=== PATIENT | male | born 1950 | race African-American/Black ===

== ENCOUNTER 2016-12-29 12:26 | Day surgery (SDC) | payer MEDICARE, OTHER ==
[~2016-12-29] VITALS: Ht 162.6 cm; Wt 114.6 kg
[2016-12-29] MEDS ORDERED: INSULIN HUMAN REGULAR 1,000 UNITS/10 ML VIAL SQ PRN (13:00)
[2016-12-29] MEDS ORDERED: LACTATED RINGER'S 1000 ML IV PRN (13:00)
[2016-12-29] MEDS ORDERED: METOPROLOL TARTRATE 25 MG TAB PO PRN (13:00)
[2016-12-29] MEDS ORDERED: SODIUM CHLORID 0.9% 500 ML IV PRN (13:00)
[2016-12-29] MEDS ORDERED: CHLORHEXIDINE GLUCONATE 2 % 1 PACK (2 CLOTHS) TOPICAL PRN (13:00)
[2016-12-29] MEDS ORDERED: GUAI1SOL3 PO (13:27)
[2016-12-29] MEDS ORDERED: GABA300C5 PO (13:27)
[2016-12-29] MEDS ORDERED: VERA120T3 PO (13:27)
[2016-12-29] MEDS ORDERED: METO100T PO (13:27)
[2016-12-29] MEDS ORDERED: ASPI1TAB69 PO (13:27)
[2016-12-29] MEDS ORDERED: ALBU0.63 NEB (13:27)
[2016-12-29] MEDS ORDERED: PANT40TA3 PO (13:27)
[2016-12-29 13:30] VITALS: BP 146/72; PULSE 70; RESP 18; TEMP 98.1; O2SAT 100
[2016-12-29 13:51] LABS: AUTOMATED NEUTROPHIL # 6.5 TH/MM3 (1.8-7.7); BASOPHIL # 0.1 TH/MM3 (0-0.2); BASOPHIL % 0.7 % (0.0-2.0); EOSINOPHIL # 0.1 TH/MM3 (0-0.4); EOSINOPHIL % 1.3 % (0.0-4.0); HEMATOCRIT 43.7 % (39.0-51.0); HEMO FLAGS DIFF FINAL; LYMPH % 24.4 % (9.0-44.0); LYMPHOCYTE # 2.4 TH/MM3 (1.0-4.8); MEAN CORPUSCULAR HEMOGLOBIN 26.8 PG (27.0-34.0); MEAN CORPUSCULAR HGB CONC 31.9 % (32.0-36.0); MONO % 7.6 % (0.0-8.0); PLATELET COUNT 220 TH/MM3 (150-450); RED CELL DISTRIBUTION WIDTH 14.7 % (11.6-17.2); WHITE BLOOD COUNT 9.8 TH/MM3 (4.0-11.0)
[2016-12-29] MEDS ORDERED: LORazepam 1 MG TAB SL SCH (14:00)
[2016-12-29] MEDS ORDERED: SODIUM CHLORID 0.9% 500 ML INJ 500 ML IV SCH (14:00)
[2016-12-29 14:01] LABS: APTT (PATIENT) 27.3 SEC (24.3-30.1); PROTHROMBIN TIME - PATIENT 10.7 SEC (9.8-11.6)
[2016-12-29 14:13] LABS: POTASSIUM 3.9 MEQ/L (3.5-5.1)
[2016-12-29] MEDS ORDERED: MIDAZOLAM HCL 2 MG/2 ML VIAL ONE (15:44)
[2016-12-29] MEDS ORDERED: ISOPROTERENOL HCL 1 MG/5 ML AMP ONE (15:44)
[2016-12-29] MEDS ORDERED: HEPARIN-NS/PF INJ 500 ML ONE (15:47)
[2016-12-29] MEDS ORDERED: PROPOFOL 200 MG/20 ML AMP IV ONE (16:15)
[2016-12-29] MEDS ORDERED: ONDANSETRON HCL 4 MG/2 ML VIAL IV PRN (17:45)
[2016-12-29] MEDS ORDERED: METOCLOPRAMIDE HCL 10 MG/2 ML VIAL IV PRN (17:45)
[2016-12-29] MEDS ORDERED: ATROPINE SULFATE 1 MG/ML VIAL IV PRN (17:45)
[2016-12-29] MEDS ORDERED: RESP: ALBUTEROL 0.63 MG/3 ML NEB (PRN) NEB (17:45)
[2016-12-29] MEDS ORDERED: LORazepam 2 MG/ML VIAL IV PRN (17:45)
[2016-12-29] MEDS ORDERED: LIDOCAINE HCL 1% 50 ML VIAL INFIL PRN (17:45)
[2016-12-29] MEDS ORDERED: SODIUM CHLOR 0.9% 250 ML INJ 250 ML IV PRN (17:45)
[2016-12-29] MEDS ORDERED: oxyCODONE/ACETAMINOPHEN 5 MG/325 MG TAB PO PRN ×2 (17:45)
[2016-12-29] MEDS ORDERED: BACITRACIN OINT 0.9 GM PKT TOP ONE (18:00)
[2016-12-29] MEDS ORDERED: DO NOT ADM ANY ANTICOAGULANT DRUGS PRN (20:45)
[2016-12-29 21:00] VITALS: PULSE 72
--- NOTE | 2016-12-29 21:14 | MA ---
cc: JULIO SHORE M.D. Corrected Copy: 12/30/16 DATE: 12/29/2016 PROCEDURE Electrophysiology study, CS cannulation, 3D mapping, radiofrequency ablation of right atrial tachyarrhythmia, repeat electrophysiology study on Isuprel infusion. INDICATION Mr. Goddard is a 66-year-old -[place] gentleman with a history of tachyarrhythmia, on multiple medication, symptomatic, referred for electrophysiology study and ablation. The risks, the nature and the benefit of the procedure are clearly stated to him. The risks include pneumothorax, cardiac perforation, stroke, need for open heart surgery and even . The patient understood and agreed to proceed. PROCEDURE After written informed consent was obtained, the patient was brought to the EP Lab where he was prepped and draped in the usual sterile fashion. Conscious sedation was initiated and maintained throughout the procedure by anesthesiologist. Once sedation verified, the right and left inguinal area was anesthetized with 2% Xylocaine. Using modified Seldinger technique, the left femoral vein was cannulated on three occasions and three guidewires were advanced; over the wires three 5-monegasque Hemaquets were advanced. Then the right femoral vein was cannulated on two occasions and two guidewires were advanced; over the wires a 6 and an 8-Slovenian Hemaquet were advanced. Then under fluoroscopic guidance through the 5 and 6 Hemaquet, four 5-Slovenian Tab curved quadripolar electrophysiology catheters were advanced and positioned along the His, upper right atrium, coronary sinus and right ventricular apex. Basic interval was measured, they were within normal limits. During the atrial pacing protocol, supraventricular tachyarrhythmia with intracardiac characteristic of atrial tachycardia was induced. He was paced terminated. Tachyarrhythmia was incessant. Then through the 8-Slovenian Hemaquet, a Cordis Leon F curve 8 mm mapping radiofrequency ablation catheter was advanced. Using [employer] endocardial solution mapping system, a three-dimensional configuration of the right atrium was obtained. Early activation showed low jovita close to the inferior vena cava. Mapping was performed. Radiofrequency ablation energy was delivered. Then during ablation the patient converted into sinus rhythm. Then atrial pacing protocol was repeated again. Tachyarrhythmia was induced. Further ablation was performed in the area. The patient converted into sinus rhythm. At that point atrial pacing protocol was repeated on multiple occasions, no tachyarrhythmia was induced, tachyarrhythmia was easily inducible. Subsequently Isuprel infusion was initiated, atrial pacing protocol was repeated again, no tachyarrhythmia was induced. At that point procedure was complete. All catheters were removed. The patient tolerated the procedure. No incident to report. Blood loss minimal. 1. Electrocardiogram: At baseline the patient was in atrial tachycardia. Postprocedure the patient in sinus rhythm. 2. Basic interval: Cycle length was around 890, AH was around 100 and HV was around 46 milliseconds. 3. Atrial pacing protocol: Post ablation Wenckebach of the node was around 400 milliseconds. 4. Ventricular pacing protocol: There was no VA conduction. No tachyarrhythmia was induced. 5. Tachyarrhythmia: Atrial tachycardia was mapped and ablated. Ablation was successful. That was a very difficult and complex procedure. CONCLUSION Successful electrophysiology study, mapping, radiofrequency ablation of right atrial tachyarrhythmia. COMMENT/RECOMMENDATION The patient going to be transferred to the telemetry unit. Will be observed, when stable can be discharged home. MD KENIA Nichole/ROSSANA /5:51 PM /12:16 PM
[2016-12-29] MEDS: METOPROLOL TARTRATE 100 MG TAB PO SCH (21:18)
[2016-12-29] MEDS: GABAPENTIN 300 MG CAP PO SCH (21:18)
[2016-12-29 22:00] VITALS: PULSE 70
[2016-12-29] MEDS: guaiFENesin/CODEINE SYRUP 200 MG/20 MG/10 ML CUP PO SCH (22:21)
[2016-12-29 22:48] VITALS: O2SAT 97
[2016-12-29 23:00] VITALS: BP 126/72; PULSE 67; PULSE 70; RESP 16; TEMP 98.4; O2SAT 97
[2016-12-30] VITALS (12 sets, daily range): BP systolic 116–118; BP diastolic 69–74; PULSE 66–75; RESP 16–17; TEMP 98–98.1; O2SAT 96
[2016-12-30] MEDS: guaiFENesin/CODEINE SYRUP 200 MG/20 MG/10 ML CUP PO SCH ×3 (04:00→08:23)
[2016-12-30 06:14] LABS: APTT (PATIENT) 26.6 SEC (24.3-30.1); PROTHROMBIN TIME - PATIENT 10.7 SEC (9.8-11.6)
--- NOTE | 2016-12-30 06:55 | PD.CARD.PN ---
Subjective Subjective Remarks Feels ok. Objective Medications Current Medications Medications (Trade) Dose Ordered Sig/Jayashree Route Start Time Stop Time Status Last Admin Lactated Ringer's 1,000 ml @ 0 mls/hr Q0M PRN IV 12/29/16 13:00 01/01/17 12:59 (NS 500 ml Inj) 500 ml @ 30 mls/hr [id number] IV 12/29/16 14:00 (Percocet 5-325 Mg) 1 tab Q4H PRN PO 12/29/16 17:45 (Percocet 5-325 Mg) 2 tab Q4H PRN PO 12/29/16 17:45 (Ativan Inj) 0.5 mg UNSCH PRN IV 12/29/16 17:45 12/30/16 17:44 Atropine Sulfate 0.5 mg 0.5 mg UNSCH PRN IV 12/29/16 17:45 (NS 250 ml Inj) 250 ml @ 500 mls/hr ONCE PRN IV 12/29/16 17:45 12/30/16 17:44 (Reglan Inj) 10 mg Q4H PRN IV 12/29/16 17:45 (Zofran Inj) 4 mg Q4H PRN IV 12/29/16 17:45 (Xylocaine 1% Inj (50 ml)) 10 ml UNSCH PRN INFIL 12/29/16 17:45 12/30/16 17:44 (Ecotrin Ec) 81 mg DAILY PO 12/30/16 09:00 (Neurontin) 300 mg BID PO 12/29/16 21:00 12/29/16 21:18 (Robitussin Ac 200-20 Mg/10 ml Liq) 10 ml Q4HR PO 12/29/16 20:00 12/29/16 22:21 (Lopressor) 100 mg BID PO 12/29/16 21:00 12/29/16 21:18 (Protonix) 40 mg DAILY PO 12/30/16 09:00 Miscellaneous Information ALL NURSING DEPARTME... UNSCH PRN .XX 12/29/16 20:45 12/30/16 20:44 Vital Signs / I&O Vital Signs Date Time Temp Pulse Resp B/P Pulse Ox O2 Delivery O2 Flow Rate FiO2 12/30/16 06:00 68 12/30/16 05:00 68 12/30/16 04:00 66 12/30/16 03:00 98.0 75 16 116/69 96 12/30/16 03:00 67 12/30/16 02:00 70 12/30/16 01:00 70 12/30/16 00:00 66 12/29/16 23:00 98.4 70 16 126/72 97 12/29/16 23:00 67 12/29/16 22:48 97 12/29/16 22:00 70 12/29/16 21:00 72 12/29/16 18:00 98 Room Air 12/29/16 13:30 98.1 70 18 146/72 100 I/O 12/29/16 12/29/16 12/29/16 12/30/16 12/30/16 12/30/16 07:00 15:00 23:00 07:00 15:00 23:00 Intake Total 690 ml Balance 690 ml Intake Oral 690 ml # Voids 2 Physical Exam GENERAL: Well-nourished, well-developed patient. SKIN: Warm and dry. Groin sites soft with no swelling or bruising. HEAD: Normocephalic. EYES: No scleral icterus. No injection or drainage. NECK: Supple, trachea midline. No JVD or lymphadenopathy. CARDIOVASCULAR: Regular rate and rhythm without murmurs, gallops, or rubs. RESPIRATORY: Breath sounds equal bilaterally. No accessory muscle use. GASTROINTESTINAL: Abdomen soft, non-tender, nondistended. EXTREMITIES: No cyanosis, or edema. NEUROLOGICAL: Awake, alert, and oriented x 3. Non-focal. Laboratory Laboratory Tests Test 12/29/16 12/30/16 13:05 05:48 White Blood Count 9.8 TH/MM3 Red Blood Count 5.20 MIL/MM3 Hemoglobin 14.0 GM/DL Hematocrit 43.7 % Mean Corpuscular Volume 84.0 FL Mean Corpuscular Hemoglobin 26.8 PG Mean Corpuscular Hemoglobin 31.9 % Concent Red Cell Distribution Width 14.7 % Platelet Count 220 TH/MM3 Mean Platelet Volume 8.8 FL Neutrophils (%) (Auto) 66.0 % Lymphocytes (%) (Auto) 24.4 % Monocytes (%) (Auto) 7.6 % Eosinophils (%) (Auto) 1.3 % Basophils (%) (Auto) 0.7 % Neutrophils # (Auto) 6.5 TH/MM3 Lymphocytes # (Auto) 2.4 TH/MM3 Monocytes # (Auto) 0.7 TH/MM3 Eosinophils # (Auto) 0.1 TH/MM3 Basophils # (Auto) 0.1 TH/MM3 CBC Comment DIFF FINAL Differential Comment Prothrombin Time 10.7 SEC 10.7 SEC Prothromb Time International 1.0 RATIO 1.0 RATIO Ratio Activated Partial 27.3 SEC 26.6 SEC Thromboplast Time Sodium Level 141 MEQ/L Potassium Level 3.9 MEQ/L Chloride Level 106 MEQ/L Carbon Dioxide Level 27.0 MEQ/L Anion Gap 8 MEQ/L Blood Urea Nitrogen 14 MG/DL Creatinine 1.17 MG/DL Estimat Glomerular Filtration 76 ML/MIN Rate Random Glucose 90 MG/DL Calcium Level 9.3 MG/DL Blood Type O NEGATIVE Antibody Screen NEGATIVE Blood Bank Comment Assessment and Plan Problem List: (1) Atrial tachycardia Assessment and Plan: Right sided atrial tach seen on EPS. (2) S/P radiofrequency ablation operation for arrhythmia Assessment and Plan: NSR this a.m. s/p atrial tachyarrhythmia ablation. DC home, f/u with Dr. Hwang in 3 weeks. Discussed Condition With D/W pt., RN, Dr. Hwang. Juany Roberts Dec 30, 2016 06:55
[2016-12-30] MEDS: GABAPENTIN 300 MG CAP PO SCH (08:21)
[2016-12-30] MEDS: METOPROLOL TARTRATE 100 MG TAB PO SCH (08:22)
[2016-12-30] MEDS ORDERED: ASPIRIN EC 81 MG TABEC PO SCH (09:00)
[2016-12-30] MEDS ORDERED: PANTOPRAZOLE SOD 40 MG DELAYED RELEASE TAB PO SCH (09:00)
--- NOTE | 2016-12-30 10:20 | EKG ---
Date Performed: 12/30/2016 Time Performed: 04:56:50 PTAGE: 66 years EKG: Sinus rhythm Normal ECG PREVIOUS TRACING : 12/29/2016 21.38 Compared to prior tracing no significant change DOCTOR: Moncho Albrecht Interpretating Date/Time 12/30/2016 10:19:23
--- NOTE | 2016-12-30 12:52 | EKG ---
Date Performed: 12/29/2016 Time Performed: 21:38:00 PTAGE: 66 years EKG: Sinus rhythm Normal ECG NO PREVIOUS TRACING DOCTOR: Moncho Albrecht Interpretating Date/Time 12/30/2016 12:51:42
--- NOTE | 2016-12-30 13:28 | EKG ---
Date Performed: 12/29/2016 Time Performed: 13:37:56 PTAGE: 66 years EKG: Possible ectopic atrial rhythm Inferior T wave changes are nonspecific Borderline ECG NO PREVIOUS TRACING DOCTOR: Moncho Albrecht Interpretating Date/Time 12/30/2016 13:26:48
== END 2016-12-30 09:45 | disposition home or self-care (01) ==
LOC: HDOC 12:26 → HDIC 12:30 → HCIN 20:00 → HDOC 12-30 09:45
PROVIDERS: ATTEND Internal Medicine Interventional Cardiology
DX: I47.1 Supraventricular tachycardia (principal); Z79.899 Other long term (current) drug therapy; Z79.82 Long term (current) use of aspirin
CPT/HCPCS: 80048; 85025; 85610; 85730; 86850; 86900; 86901; 93005; 93613; 93623; 93653; C1730; C1732; C2630; J1644; J2250; J3010